=== PATIENT | male | born 2000 | race African-American/Black ===

== ENCOUNTER 2024-02-20 21:01 | Emergency (ER) | payer SELFPAY ==
[2024-02-20 21:09] VITALS: BP 106/70; PULSE 71; RESP 20; TEMP 98.6; BMI 23.0
[2024-02-20] MEDS ORDERED: IBUPROFEN 600 MG TABLET (FP) PO ONE (21:43)
[2024-02-20] MEDS ORDERED: CEPHALEXIN MONOHYDRATE 500 MG CAPSULE (UD) ONE (21:43)
[2024-02-20] MEDS: IBUPROFEN 600 MG TABLET (FP) PO ONE (21:46)
[2024-02-20] MEDS: CEPHALEXIN MONOHYDRATE 500 MG CAPSULE (UD) PO ONE (21:46)
== END 2024-02-20 22:14 | disposition home or self-care (01) ==
LOC: JERFT 21:01
DX: L03.012 Cellulitis of left finger (principal)
CPT/HCPCS: 99283-25

== ENCOUNTER 2024-02-25 15:36 | Emergency (ER) | payer SELFPAY ==
[2024-02-25 15:44] VITALS: BP 106/66; PULSE 78; RESP 20; TEMP 98.8; BMI 20.3
[2024-02-25] MEDS ORDERED: ACETAMINOPHEN 500 MG TABLET (FP) ONE (17:34)
[2024-02-25] MEDS: ACETAMINOPHEN 500 MG TABLET (FP) PO ONE (17:36)
[2024-02-25] MEDS ORDERED: IBUPROFEN 600 MG TABLET (FP) PO ONE (17:49)
[2024-02-25] MEDS ORDERED: BACITRACIN ZINC 15 GM TUBE TOPICAL OINTMENT ONE (17:49)
[2024-02-25] MEDS: BACITRACIN ZINC 15 GM TUBE TOPICAL OINTMENT TP ONE (17:51)
[2024-02-25] MEDS: IBUPROFEN 600 MG TABLET (FP) PO ONE (17:51)
== END 2024-02-25 18:09 | disposition home or self-care (01) ==
LOC: JERFT 15:36
PROC: 0H9GXZZ Drainage of Left Hand Skin, External Approach (ICD-10-PCS; principal; 2024-02-25)
DX: L03.012 Cellulitis of left finger (principal)
CPT/HCPCS: 99283-25